=== PATIENT | male | born 1990 | race Hispanic/Latino ===

== ENCOUNTER 2022-12-06 07:35 | Inpatient (IN) | payer SELFPAY ==
[2022-12-06 08:27] LABS: #Eosinphils 0.1 thou/uL (0.0-0.7); #Monocytes 0.4 thou/uL (0.11-0.59); #Neutrophils 9.7 thou/uL (1.40-6.50); %Basophils 0.4 % (0.0-1.0); %Eosinophils 0.6 % (0.0-10.0); %Lymphocytes 8.9 % (21.0-51.0); %Monocytes 3.8 % (0.0-10.0); Hematocrit 45.6 % (42.0-52.0); Hemoglobin 15.7 g/dL (14.0-18.0); Mean Corpuscular HGB CONC 34.4 g/dL (32.0-36.0); Mean Corpuscular Volume 92.9 fl (78.0-98.0); Mean Platelet Volume 9.7 fL (7.4-10.4); Platelet Count 301 10x3/uL (130-400); RBC Distribution Width 12.7 % (11.5-14.5); Red Blood Cell (RBC) Count 4.91 mill/uL (4.70-6.10); White Blood Cell (WBC) Count 11.3 10x3/uL (4.8-10.8)
[2022-12-06] MEDS ORDERED: Ondansetron PF 4 MG/2 ML Vial ONE (08:42)
[2022-12-06] MEDS ORDERED: Morphine 4 MG/ML VIAL ONE ×2 (08:42→10:13)
[2022-12-06 08:55] LABS: Troponin I Less than 0.010 ng/mL (< 0.028)
[2022-12-06 09:08] LABS: ALT (SGPT) 21 U/L (8-55); AST (SGOT) 23 U/L (5-34); Albumin 4.4 g/dL (3.5-5.0); Alkaline Phosphatase 92 U/L (40-110); Anion Gap 21 mmol/L (10-20); BUN (Urea Nitrogen) 12 mg/dL (8.9-20.6); Bilirubin, Total 1.7 mg/dL (0.2-1.2); CK (CPK) 76 U/L (30-200); Calc. Creatinine Clearance 0 mL/min (70-130); Calcium 9.9 mg/dL (7.8-10.44); Carbon Dioxide 17 mmol/L (22-29); Chloride 104 mmol/L (98-107); Estimated GFR 115; Globulin 3.5 g/dL (2.4-3.5); Glucose 175 mg/dL (70-105); Lipase 896 U/L (8-78); Potassium 3.9 mmol/L (3.5-5.1); Protein, Total 7.9 g/dL (6.0-8.3); Sodium 138 mmol/L (136-145)
[2022-12-06 09:48] LABS: SARS-CoV-2 NAA Rapid Test Not Detected (NotDetected)
[2022-12-06] MEDS ORDERED: Iopamidol-370 76% 500 ML MDV (1 ML CHARGE) ONE (09:49)
[2022-12-06 09:52] LABS: Bacteria/HPF None Seen HPF (None Seen); Bilirubin Negative (Negative); Blood, Urine Negative (Negative); CAUTI Indications for Culture Dysuria,urgency,freq; Clarity Clear (Clear); Glucose, Urine (Dipstick) 50 mg/dL (Negative); Ketone, Urine 100 mg/dL (Negative); Leukocyte Negative Leu/uL (Negative); Nitrite Negative (Negative); Protein, Urine (Dipstick) 50 mg/dL (Neg-Trace); RBC/HPF None Seen HPF (0-3); Specific Gravity, Urine 1.024 (1.002-1.036); Squamous Epithelial None Seen HPF (0-3); Urobilinogen Normal mg/dL (Less than 2); WBC/HPF 0-3 HPF (0-3); pH, Urine 5.5 (5.0-9.0)
[2022-12-06 09:57] LABS: Urine Culture Reflex No No
[2022-12-06] MEDS ORDERED: HYDROcodone/Acetaminophen 5/325 mg Tablet ONE (12:52)
[2022-12-06] MEDS ORDERED: Ondansetron PF 4 MG/2 ML Vial IVP PRN (13:53)
[2022-12-06] MEDS ORDERED: Senokot S 8.6-50 MG TAB PO PRN (13:54)
[2022-12-06] MEDS ORDERED: Ondansetron ODT 4 MG TAB PO PRN (13:54)
[2022-12-06] MEDS ORDERED: Electrolyte Replacement Protocol FS PRN (14:00)
[2022-12-06] MEDS ORDERED: Electrolyte Replacement Protocol 1 EACH FS SCH (14:00)
[2022-12-06 14:02] VITALS: BMI 26.8
[2022-12-06] MEDS: Sodium Chloride 0.9% 1,000 ML IV SCH ×2 (14:09→20:30)
[2022-12-06] MEDS: Morphine 4 MG/ML VIAL SLOW IVP PRN ×3 (14:09→22:25)
[2022-12-06] MEDS: HYDROcodone/Acetaminophen 5/325 mg Tablet PO PRN (17:01)
[2022-12-06 17:47] LABS: Cardiac Risk 3.1 (Less than 4.5)
[2022-12-07] MEDS: HYDROcodone/Acetaminophen 5/325 mg Tablet PO PRN ×4 (00:40→17:22)
[2022-12-07] MEDS: Morphine 4 MG/ML VIAL SLOW IVP PRN ×4 (02:38→22:16)
[2022-12-07] MEDS: Sodium Chloride 0.9% 1,000 ML IV SCH ×4 (03:38→18:47)
[2022-12-07 06:17] LABS: #Eosinphils 0.1 thou/uL (0.0-0.7); #Monocytes 0.4 thou/uL (0.11-0.59); #Neutrophils 9.4 thou/uL (1.40-6.50); %Basophils 0.2 % (0.0-1.0); %Eosinophils 0.8 % (0.0-10.0); %Lymphocytes 8.7 % (21.0-51.0); %Monocytes 3.7 % (0.0-10.0); %Neutrophils 86.4 % (42.0-75.0); Hematocrit 40.3 % (42.0-52.0); Hemoglobin 13.5 g/dL (14.0-18.0); Mean Corpuscular HGB CONC 33.5 g/dL (32.0-36.0); Mean Corpuscular Hemoglobin 31.8 pg (27.0-31.0); RBC Distribution Width 13.1 % (11.5-14.5); Red Blood Cell (RBC) Count 4.24 mill/uL (4.70-6.10); White Blood Cell (WBC) Count 10.9 10x3/uL (4.8-10.8)
[2022-12-07 06:23] LABS: Platelet Count 176 10x3/uL (130-400)
[2022-12-07 06:53] LABS: ALT (SGPT) 12 U/L (8-55); AST (SGOT) 20 U/L (5-34); Albumin 3.5 g/dL (3.5-5.0); Alkaline Phosphatase 64 U/L (40-110); Anion Gap 12 mmol/L (10-20); BUN (Urea Nitrogen) 8 mg/dL (8.9-20.6); Bilirubin, Total 1.3 mg/dL (0.2-1.2); Calc. Creatinine Clearance 164 mL/min (70-130); Calcium 8.5 mg/dL (7.8-10.44); Carbon Dioxide 22 mmol/L (22-29); Chloride 108 mmol/L (98-107); Estimated GFR 125; Glucose 116 mg/dL (70-105); Lipase 216 U/L (8-78); Magnesium 2.7 mg/dL (1.6-2.6); Potassium 3.4 mmol/L (3.5-5.1); Protein, Total 6.5 g/dL (6.0-8.3); Sodium 139 mmol/L (136-145)
[2022-12-07] MEDS ORDERED: Potassium Chloride 20 MEQ TAB PO SCH (08:00)
[2022-12-07] MEDS: Thiamine 100 MG TAB PO SCH (08:09)
[2022-12-07] MEDS: Folic Acid 1 MG TAB PO SCH (08:09)
[2022-12-08] MEDS: HYDROcodone/Acetaminophen 5/325 mg Tablet PO PRN ×2 (00:45→08:06)
[2022-12-08] MEDS: Sodium Chloride 0.9% 1,000 ML IV SCH ×2 (00:50→09:42)
[2022-12-08] MEDS: Folic Acid 1 MG TAB PO SCH (08:06)
[2022-12-08] MEDS: Thiamine 100 MG TAB PO SCH (08:06)
[2022-12-08 09:02] VITALS: BP 143/89; TEMP 99.9
[2022-12-08 09:13] LABS: ALT (SGPT) 11 U/L (8-55); AST (SGOT) 17 U/L (5-34); Albumin 3.5 g/dL (3.5-5.0); Alkaline Phosphatase 71 U/L (40-110); Anion Gap 13 mmol/L (10-20); BUN (Urea Nitrogen) 6 mg/dL (8.9-20.6); Bilirubin, Total 1.6 mg/dL (0.2-1.2); Calc. Creatinine Clearance 158 mL/min (70-130); Calcium 8.7 mg/dL (7.8-10.44); Carbon Dioxide 22 mmol/L (22-29); Chloride 101 mmol/L (98-107); Estimated GFR 123; Globulin 3.2 g/dL (2.4-3.5); Glucose 123 mg/dL (70-105); Lipase 56 U/L (8-78); Potassium 3.5 mmol/L (3.5-5.1); Protein, Total 6.7 g/dL (6.0-8.3); Sodium 132 mmol/L (136-145)
[2022-12-08] MEDS: Morphine 4 MG/ML VIAL SLOW IVP PRN (09:39)
[2022-12-08] MEDS ORDERED: Potassium Chloride 20 MEQ TAB PO SCH (10:00)
== END 2022-12-08 12:43 | disposition home or self-care (01) | DRG 440 ==
LOC: ERS 07:35 → T4-A 13:45 → OBSVTOIN 12-07 12:24
PROVIDERS: ADMIT Internal Medicine; ATTEND Family Medicine
DX: K85.20 Alcohol induced acute pancreatitis without necrosis or infection (principal); K76.0 Fatty (change of) liver, not elsewhere classified; E87.6 Hypokalemia; E78.1 Pure hyperglyceridemia; Z71.41 Alcohol abuse counseling and surveillance of alcoholic; Z20.822 Contact with and (suspected) exposure to COVID-19
CPT/HCPCS: 36415; 74177; 80053; 80061; 81001; 82550; 83690; 83735; 84100; 84484; 85025; 93005; J1650; J2270; J2405; J7050; Q9967